=== PATIENT | female | born 2000 | race Hispanic/Latino ===

== ENCOUNTER 2022-11-06 12:46 | Outpatient (CLI) | payer OTHER | END 2022-11-06 12:47 | disposition home or self-care (01) | LOC: CSHULT 12:46 | PROVIDERS: ATTEND Family Medicine | DX: Z34.82 Encounter for supervision of other normal pregnancy, second trimester (principal) | CPT/HCPCS: 76805 ==

== ENCOUNTER 2023-01-16 18:26 | Inpatient (IN) | payer MEDICAID, OTHER, SELFPAY ==
[2023-01-16 19:05] VITALS: BMI 30.9
[2023-01-16] MEDS ORDERED: hydrALAZINE 20 MG/ML VIAL SLOW IVP PRN (19:49)
[2023-01-17] MEDS ORDERED: Tranexamic Acid 1,000 MG/10 ML VIAL IVP PRN (00:49)
[2023-01-17] MEDS ORDERED: Lidocaine 1% (PF) 30 ML VIAL SC PRN (00:49)
[2023-01-17] MEDS ORDERED: Ondansetron PF 4 MG/2 ML Vial IVP PRN ×3 (00:49→11:18)
[2023-01-17] MEDS ORDERED: Promethazine HCl 25 MG/ML VIAL IM PRN ×3 (00:49→11:18)
[2023-01-17] MEDS ORDERED: Carboprost 250 MCG/ML AMP IM PRN (00:49)
[2023-01-17] MEDS ORDERED: Diphenoxylate HCl/Atropine Tablet PO PRN ×2 (00:49)
[2023-01-17] MEDS ORDERED: Acetaminophen 500 MG TAB PO PRN (00:49)
[2023-01-17] MEDS ORDERED: Methylergonovine 0.2 MG/ML VIAL IM PRN (00:49)
[2023-01-17] MEDS ORDERED: Misoprostol 200 MCG TAB PR PRN (00:49)
[2023-01-17] MEDS ORDERED: Ibuprofen 800 MG TAB PO PRN (00:49)
[2023-01-17] MEDS ORDERED: NS w/ Oxytocin 30 units 500 ML IV SCH (01:00)
[2023-01-17 01:36] LABS: Hemoglobin 12.9 g/dL (12.0-15.5); Mean Corpuscular HGB CONC 34.4 g/dL (32.0-36.0); Mean Corpuscular Hemoglobin 28.7 pg (27.0-33.0); Mean Corpuscular Volume 83.5 fl (81.6-98.3); Mean Platelet Volume 11.4 fl (7.4-10.4); Platelet Count 192 10x3/uL (150-450); RBC Distribution Width 13.4 % (11.5-14.5); Red Blood Cell (RBC) Count 4.49 10x6/uL (3.90-5.03); White Blood Cell (WBC) Count 10.5 10x3/uL (3.5-10.5)
[2023-01-17] MEDS ORDERED: Fentanyl 2 mcg/Bup 0.1% Cadd 100 ML ONE (01:55)
[2023-01-17 02:07] LABS: HBSAg Index 0.17 S/CO (0-0.99); Hep B Surf Ag - L&D Non-Reactive S/CO (NonReactive)
[2023-01-17 02:08] LABS: Syphilis Antibody Nonreactive (Nonreactive); Syphilis Antibody Index 0.06 S/CO (<1.00 Non-Reactive)
[2023-01-17] MEDS ORDERED: Moisturizing Cream (Eucerin) 113 GM JAR TOP PRN (02:48)
[2023-01-17] MEDS ORDERED: Naloxone HCl 0.4 mg/ml Vial IVP PRN ×2 (02:48)
[2023-01-17] MEDS ORDERED: diphenhydrAMINE 50 MG/ML VIAL IVP PRN (02:48)
[2023-01-17] MEDS ORDERED: ePHEDrine Sulfate 50 MG/10 ML VIAL SLOW IVP PRN (02:48)
[2023-01-17] MEDS ORDERED: Acetaminophen 325 MG TAB PO PRN (02:48)
[2023-01-17] MEDS ORDERED: Lactated Ringer's 500 ML IV PRN (02:48)
[2023-01-17] MEDS ORDERED: Fentanyl 2 mcg/Bupivacaine 0.1% Cassette 100 ML EPIDURAL SCH (03:00)
[2023-01-17] MEDS ORDERED: Communication Order-Pharmacy FS SCH (03:00)
[2023-01-17] MEDS ORDERED: Bupivacaine 0.75% W/DEXTROSE 8.25% 2 ML AMP ONE (03:18)
[2023-01-17] MEDS ORDERED: Bupivacaine 0.25% HCL 30 ML VIAL ONE (08:00)
[2023-01-17] MEDS ORDERED: NS w/ Oxytocin 30 units 500 ML ONE (08:19)
[2023-01-17] MEDS ORDERED: diphenhydrAMINE 25 MG CAP PO PRN (11:18)
[2023-01-17] MEDS ORDERED: HYDROcodone/Acetaminophen 5/325 mg Tablet PO PRN (11:18)
[2023-01-17] MEDS ORDERED: Bisacodyl 10 MG SUPP PR PRN (11:18)
[2023-01-17] MEDS ORDERED: Milk Of Magnesia 30 ML UDCUP PO PRN (11:18)
[2023-01-17] MEDS ORDERED: Benzocaine-Menthol 82.5 ML CAN TOP PRN (11:18)
[2023-01-17] MEDS ORDERED: Boostrix 0.5 ML (Tdap) VIAL (>/=7 yrs of age) IM ONE (11:18)
[2023-01-17] MEDS ORDERED: hydrALAZINE 20 MG/ML VIAL SLOW IVP PRN (11:18)
[2023-01-17] MEDS ORDERED: Lanolin Ointment 7 GM TUBE TOP PRN (11:18)
[2023-01-17] MEDS ORDERED: Docusate 100 MG CAP PO SCH (11:30)
[2023-01-17] MEDS ORDERED: Prenatal Vitamin 1 TAB PO SCH (11:30)
[2023-01-17] MEDS: Ferrous Sulfate 325 MG TAB PO SCH (13:05)
[2023-01-17] MEDS: Ibuprofen 800 MG TAB PO SCH (17:06)
[2023-01-18] MEDS: Ibuprofen 800 MG TAB PO SCH ×2 (01:52→13:18)
[2023-01-18] MEDS: Docusate 100 MG CAP PO SCH ×2 (01:52→08:26)
[2023-01-18] MEDS: Ferrous Sulfate 325 MG TAB PO SCH (08:30)
[2023-01-18] MEDS ORDERED: Prenatal Vitamin 1 TAB PO SCH (09:00)
[2023-01-18 11:10] VITALS: BP 114/68; TEMP 98.6
== END 2023-01-18 16:50 | disposition home or self-care (01) | DRG 807 ==
LOC: CSHLD/OP 18:26 → CSHLD 01-17 00:55 → CSHPP 01-17 12:42
PROVIDERS: ADMIT Family Medicine; ATTEND Family Medicine
PROC: 10E0XZZ Delivery of Products of Conception, External Approach (ICD-10-PCS; principal; 2023-01-17)
PROC: 0KQM0ZZ Repair Perineum Muscle, Open Approach (ICD-10-PCS; 2023-01-17)
DX: O70.1 Second degree perineal laceration during delivery (principal); Z37.0 Single live birth; Z3A.38 38 weeks gestation of pregnancy
CPT/HCPCS: 36415; 51702; 85027; 86780; 86850; 86900; 86901; 87340; 99285; J2590; J3490; S0020

== ENCOUNTER 2025-06-22 22:22 | Emergency (ER) | payer BC, MEDICAID | END 2025-06-22 23:28 | disposition home or self-care (01) | LOC: CSHERS 22:22 | DX: O20.0 Threatened abortion (principal); Z3A.08 8 weeks gestation of pregnancy | CPT/HCPCS: 99283 ==